=== PATIENT | female | born 1980 | race Hispanic/Latino ===

== ENCOUNTER → 2019-07-12 | Outpatient (CLI) | payer OTHER ==
[~2019-07-12] MED LIST: CARAFATE1 GM/10 ML PO; FERROUS SULFAT325 MG PO; FOLIC ACID1 MG PO; OMEPRAZOLE40 MG PO; ULTRAM50 MG PO
--- NOTE | 2019-07-12 16:35 | Diagnostic Imaging Report ---
Pelvic ultrasound. History: Left lower quadrant pain Comparison: None available. Discussion: Transabdominal and transvaginal evaluation of the pelvis was performed in the transverse and longitudinal planes. The uterus is normal in size measuring 8.9 x 5.3 x 5.8 cm. The endometrial stripe is within normal limits at 4 mm. The right ovary measures 3.2 x 2.0 x 1.7 cm and contains an anechoic cyst which measures 1.6 x 1.3 x 1.3 cm. The left ovary measures 2.2 x 1.2 x 2.0 cm. There is no evidence of an adnexal mass. There is no evidence of free fluid. IMPRESSION: Normal pelvic ultrasound. Signed by: Toy Tejada MD on 07/12/2019 4:32 PM
--- NOTE | 2019-07-12 16:37 | Diagnostic Imaging Report ---
EXAM: Renal Ultrasound INDICATION: Left lower quadrant pain, cystitis COMPARISON: None TECHNIQUE: Transverse and longitudinal images of the kidneys and bladder were obtained. FINDINGS: Right Kidney: Length: 10.4 cm Appearance: Normal echogenicity. Collecting system: No hydronephrosis Stones: None Cyst/Mass: None Left Kidney: Length: 10.2 cm Appearance: Normal echogenicity. Collecting system: No hydronephrosis Stones: None Cyst/Mass: There is an exophytic 0.7 x 0.6 x 0.8 cm anechoic cyst arising from the midpole left kidney. Bladder: Normal. Bilateral ureteral jets are identified. There is no bladder wall thickening. IMPRESSION: Normal renal ultrasound. Signed by: Toy Tejada MD on 07/12/2019 4:34 PM
== END ==
LOC: US 15:29
PROVIDERS: ATTEND Internal Medicine
DX: R10.32 Left lower quadrant pain (principal); N30.00 Acute cystitis without hematuria
CPT/HCPCS: 76770; 76856

== ENCOUNTER 2019-08-28 15:08 | Emergency (ER) | payer OTHER ==
[~2019-08-28] VITALS: Ht 154.9 cm; Wt 62.1 kg
--- OUTSIDE RECORDS SUMMARY | 2019-08-28 15:11 | XMS REPORT ---
Author [facility] Address Unknown Phone Unavailable Care Team Providers Care Tile Applicator Name Role Phone Ziggy CHENEY Unavailable Unavailable Payers Payer Name Policy Type Policy Number Effective Date Expiration Date Problems This patient has no known problems. Allergies, Adverse Reactions, Alerts Allergy Name Allergy Type Status Severity Reaction(s) Onset Date Inactive Date Treating Clinician Comments morphine DA Active SV 2018-08-10 00:00:00 No Known Allergies DA Active U 2014-06-26 00:00:00 Medications This patient has no known medications. Results Test Description Test Time Test Comments Text Results Atomic Results Result Comments US RENAL RETROPERITONEAL COMP 2019-07-12 16:33:00 [place] [address] Patient Name: DANIA WOODARD MR #: [id number] : 1980 Age/Sex: 38/F Req #: [id number] Adm Physician: Ordered by: WENDY CHENEY MD Report #: [id number] Location: US Room/Bed: Procedure: [id number] US/US RENAL RETROPERITONEAL COMP Exam Date: Exam Time: REPORT STATUS: Signed EXAM: Renal Ultrasound INDICATION: Left lower quadrant pain, cystitis COMPARISON: None TECHNIQUE: Transverse and longitudinal images of the kidneys and bladder were obtained. FINDINGS: Right Kidney: Length: 10.4 cm Appearance: Normal echogenicity. Collecting system: No hydronephrosis Stones: None Cyst/Mass: None Left Kidney: Length: 10.2 cm Appearance: Normal echogenicity. Collecting system: No hydronephrosis Stones: None Cyst/Mass: There is an exophytic 0.7 x 0.6 x 0.8 cm anechoic cyst arising from the midpole left kidney. Bladder: Normal. Bilateral ureteral jets are identified. There is no bladder wall thickening. IMPRESSION: Normal renal ultrasound. Signed by: Toy Ramon MD on 07/12/2019 4:34 PM Dictated By: TOY RAMON MD Transcribed By: SANDRO on 07/12/191633 COPY TO: WENDY CHENEY MD US PELVIS COMPLETE NON OB 2019-07-12 16:31:00 [place] [address] Patient Name: DANIA WOODARD MR #: [id number] : 1980 Age/Sex: 38/F Req #: [id number] Adm Physician: Ordered by: WENDY CHENEY MD Report #: [id number] Location: Room/Bed: Procedure: [id number] US/US PELVIS COMPLETE NON OB Exam Date: Exam Time: REPORT STATUS: Signed Pelvic ultrasound. History: Left lower quadrant pain Comparison: None available. Discussion: Transabdominal and transvaginal evaluation of the pelvis was performed in the transverse and longitudinal planes. The uterus is normal in size measuring 8.9 x 5.3 x 5.8 cm. The endometrial stripe is within normal limits at 4 mm. The right ovary measures 3.2 x 2.0 x 1.7 cm and contains an anechoic cyst which measures 1.6 x 1.3 x 1.3 cm. The left ovary measures 2.2 x 1.2 x 2.0 cm. There is no evidence of an adnexal mass. There is no evidence of free fluid. IMPRESSION: Normal pelvic ultrasound. Signed by: Toy Ramon MD on 07/12/2019 4:32 PM Dictated By: TOY RAMON MD [id number] Transcribed By: SANDRO on 07/12/19 163 COPY TO: WENDY CHENEY MD
[2019-08-28 17:04] LABS: BASOPHILS % 0.2 % (0.0-1.0); EOSINOPHILS # (AUTO) 0.1 (0.0-0.4); EOSINOPHILS % 1.4 % (0.0-6.0); HEMATOCRIT 36.7 % (34.2-44.1); HEMOGLOBIN 12.1 g/dL (12.0-16.0); LYMPHOCYTES # (AUTO) 1.9 (1.0-3.2); LYMPHOCYTES % 22.1 % (18.0-39.1); MEAN CORPUSCULAR HEMOGLOBIN 28.7 pg (28-32); MONOCYTES # (AUTO) 0.6 (0.2-0.8); MONOCYTES % 6.9 % (4.4-11.3); NEUTROPHILS # (AUTO) 5.9 (2.1-6.9); PLATELET COUNT 305 x10e3/uL (140-360); RED BLOOD COUNT 4.22 x10e6/uL (3.6-5.1); RED CELL DISTRIBUTION WIDTH 13.2 % (11.7-14.4)
[2019-08-28 17:05] LABS: BILIRUBIN,URINE NEGATIVE (NEGATIVE); CLARITY,URINE CLEAR (CLEAR); COLOR,URINE YELLOW (YELLOW); KETONES,URINE NEGATIVE (NEGATIVE); LEUKOCYTE ESTERASE ,URINE NEGATIVE (NEGATIVE); NITRITE,URINE NEGATIVE (NEGATIVE); PROTEIN,URINE DIPSTICK NEGATIVE (NEGATIVE); URINE UROBILINOGEN 0.2 mg/dL (0.2 - 1)
[2019-08-28 17:08] LABS: PREGNANCY TEST, URINE NEGATIVE (NEGATIVE)
[2019-08-28 17:19] LABS: BACTERIA,URINE RARE /HPF
[2019-08-28 17:25] LABS: ALANINE AMINOTRANSFERASE 12 IU/L (0-55); ALBUMIN 3.9 g/dL (3.5-5.0); ALBUMIN/GLOBULIN RATIO 1.1 (0.8-2.0); ALKALINE PHOSPHATASE 71 IU/L (40-150); ANION GAP 9.8 mmol/L (8-16); BLOOD UREA NITROGEN 8 mg/dL (7-26); BUN/CREATININE RATIO 11 (6-25); CALCIUM 9.4 mg/dL (8.4-10.2); CARBON DIOXIDE 30 mmol/L (22-29); CHLORIDE 101 mmol/L (98-107); CREATININE, SERUM 0.75 mg/dL (0.57-1.11); EST GLOMERULAR FILTRATION RATE > 60 ML/MIN (60-); GLUCOSE 90 mg/dL (74-118); POTASSIUM 3.8 mmol/L (3.5-5.1); SODIUM 137 mmol/L (136-145)
[2019-08-28] MEDS ORDERED: IOPAMIDOL 370 MG/ML 200 ML INFUS..BTL INJ ONE (18:02)
[2019-08-28] MEDS ORDERED: SODIUM CHLORIDE 0.9% 50ML 0 ML ONE (18:02)
[2019-08-28] MEDS ORDERED: SODIUM CHLORIDE 0.9% 50ML 50 ML ONE (18:14)
--- NOTE | 2019-08-28 18:20 | Diagnostic Imaging Report ---
EXAMINATION: CT of the abdomen and pelvis with contrast. TECHNIQUE: Helical CT images of the abdomen and pelvis were performed from the lung bases to the lesser trochanters after the intravenous administration of 100 cc of Isovue 300 and the oral administration of none. Coronal and sagittal reformatted images were obtained.Dose modulation, iterative reconstruction, and/or weight based adjustment of the mA/kV was utilized to reduce the radiation dose to as low as reasonably achievable. COMPARISON: None. CLINICAL HISTORY:Abdominal pain DISCUSSION: ABDOMEN/PELVIS: LOWER THORAX:Unremarkable. HEPATOBILIARY: No focal hepatic lesions. No intra-or extrahepatic biliary ductal dilation. The gallbladder is normal. SPLEEN: No splenomegaly. PANCREAS: No focal masses or ductal dilatation. ADRENALS: No adrenal nodules. KIDNEYS/URETERS: No hydronephrosis, stones, or solid mass lesions. PELVIC ORGANS/BLADDER: Small pelvic fibroid measuring approximately 2 cm. Fallopian tube clips. PERITONEUM/RETROPERITONEUM: No free air or fluid. LYMPH NODES: No intra-abdominal, retroperitoneal, pelvic or inguinal lymphadenopathy. VESSELS: Unremarkable. GI TRACT: No distention or wall thickening. Appendix is normal. BONES AND SOFT TISSUE: No bony destructive lesions. No soft tissue abnormalities. IMPRESSION: No acute CT finding. Signed by: Dr. Rey Trammell M.D. on 08/28/2019 6:16 PM
[2019-08-28] MEDS ORDERED: KETOROLAC TROMETHAMINE 30 MG/ML VIAL IV STA (18:53)
== END 2019-08-28 19:23 | disposition left against medical advice (07) ==
LOC: ER 15:08
DX: R10.31 Right lower quadrant pain (principal); R11.0 Nausea; D64.9 Anemia, unspecified
CPT/HCPCS: 36415; 74177; 80053; 81001; 81025; 85025; 87086; 99283; Q9967

== ENCOUNTER → 2019-12-16 | Day surgery (SDC) | payer OTHER ==
[2019-12-12 12:25] LABS: BASOPHILS # (AUTO) 0.1 (0.0-0.1); BASOPHILS % 0.6 % (0.0-1.0); EOSINOPHILS # (AUTO) 0.1 (0.0-0.4); EOSINOPHILS % 1.1 % (0.0-6.0); HEMOGLOBIN 12.8 g/dL (12.0-16.0); LYMPHOCYTES # (AUTO) 2.1 (1.0-3.2); LYMPHOCYTES % 24.1 % (18.0-39.1); MEAN CORPUSCULAR HGB CONC 32.8 g/dL (31-35); MEAN CORPUSCULAR VOLUME 88.4 fL (81-99); MONOCYTES # (AUTO) 0.6 (0.2-0.8); MONOCYTES % 6.3 % (4.4-11.3); NEUTROPHILS % 67.6 % (38.7-80.0); PLATELET COUNT 320 x10e3/uL (140-360); RED BLOOD COUNT 4.41 x10e6/uL (3.6-5.1); RED CELL DISTRIBUTION WIDTH 12.4 % (11.7-14.4)
[~2019-12-16] MED LIST changes: +DEXAMETHASONE SOD PHOS INJ 4 MG/ML VIAL ONE; +DIPHENHYDRAMINE HCL INJ 50 MG/ML VIAL ONE; +FENTANYL CITRATE/PF 100MCG/2 ML INJ ONE; +HYDROMORPHONE 1MG/1ML INJ ONE; +KETOROLAC TROMETHAMINE 30 MG/ML VIAL ONE; +LIDOCAINE HCL 2% LOCAL INJ 5 ML SDV VIAL INJ ONE; +MIDAZOLAM HCL 2 MG/2 ML VIAL ONE; +ONDANSETRON HCL INJ 2MG/ML 2ML 2 MG/ML VIAL ONE; +PROPOFOL IV EMULSION 10 MG/ML 20 ML VIAL ONE; +SEVOFLURANE INHAL SOLN 250 ML PEN BTL ONE
[2019-12-16 14:15] VITALS: BP 115/76
--- NOTE | 2019-12-16 21:49 | Operative Report ---
DATE OF PROCEDURE: 12/16/2019 SURGEON: Sabine Guerra MD PREOPERATIVE DIAGNOSES: 1. Uterine mass. 2. Pelvic pain. POSTOPERATIVE DIAGNOSES: 1. Uterine mass. 2. Pelvic pain. PROCEDURES: 1. Hysteroscopy. 2. D and C. 3. Excision of uterine mass. COMPLICATIONS: None. ESTIMATED BLOOD LOSS: Minimal. DESCRIPTION OF PROCEDURE: The patient was taken to the OR. General anesthesia was induced. She was prepped and draped in a sterile fashion and placed in dorsal lithotomy position. After examination under anesthesia, cavity length measured about 8 cm. Cervix was dilated to Hegar 8. Hysteroscope was introduced using the TruClear hysteroscope and it showed large mass of about [address] from the fundus of the cervix. Using the soft tissue mini radha, mass was excised and sent to pathology. Sharp curettings were obtained, sent to pathology. The patient tolerated the procedure well. Laps, instrument, and needle counts were correct x2 at the end of the procedure. Sabine Guerra MD DD/MISAELL /[id number]
== END | disposition home or self-care (01) ==
LOC: OR 12:09
PROVIDERS: ATTEND Obstetrics & Gynecology
DX: N84.0 Polyp of corpus uteri (principal); Z88.6 Allergy status to analgesic agent; Z01.812 Encounter for preprocedural laboratory examination
CPT/HCPCS: 36415; 58558; 84702; 85025; 88305; C1758; J1100; J1170; J1200; J1885; J2001; J2250; J2405; J2704; J3010